=== PATIENT | female | born 1965 | race Caucasian/White ===

== ENCOUNTER 2021-10-17 12:30 | Outpatient (RCR) | payer BC, SELFPAY ==
--- NOTE | 2021-09-30 14:15 | OTOPEVAL ---
OCCUPATIONAL THERAPY EVALUATION REPORT AND DISCHARGE SUMMARY 09/30/21 Mehnaz is a 56 year-old, right handed female with PMH of DM and recent left AKA. OT evaluation completed this afternoon showing patient has functional UB strength, UE strengthening HEP from rehab, and is completing ADLs from w/c level with intermittent assist from her . Had patient simulate ADL tasks in the clinic today and had a lengthy discussion with the patient and her about having her help less as she does really well on her own. Also recommended that they install suction cup grab bars in the shower. No further skilled OT indicated at this time. Thank you for referring Mehnaz Luna to [facility] [place] Please review, sign, date and return this Discharge Summary REED. I agree with and certify that the following plan of care is medically necessary. Referring Physician Date Referring Provider: Kenia Juarez MD *OT Outpatient Evaluation Start: 09/30/21 13:27 Therapy Assessment Status Assessment Status Assessment Status Evaluation Outpatient Past Medical History Past Medical History Source of Past Medical History Patient Cardiovascular History Hx Myocardial Infarction Yes Gastrointestinal History Hx Cirrhosis Yes Musculoskeletal History Hx Rheumatoid Arthritis Yes Hx Other Musculoskeletal Disorders Yes: left AKA 07/28/21 Endocrine History Hx Diabetes Yes Integumentary History Hx Other Skin Disorders Yes: left foot ulcer Evaluation Information Problem Diagnosis left AKA Onset 07/28/21 Additional Evaluation Detail h/o left AKA 07/28/21 at [facility] from 08/26/21- . Subjective Information Patient lives at home with her Query Text:As Reported By Patient/ who helps her with Family shower transfers and intermittently helps with dressing. She got a new w/c and she can now do some cooking from w/c level. Prior Level of Function Activity Level (Last 3 Months) Hand Dominance Right Activity of Daily Living Ability Needs Some Help Indoor/Home Mobility Independent Community Mobility Independent Stairs Ability Not-Applicable Home Setting Home Type Mobile Home Environmental Barriers Jennyfer, Carpet,Jennyfer, Laminate,Ramp Living Situation With Spouse Support Available Local Family Support Mobility Assistive Devices (Used Last 3 Sliding Board,Wheelchair, Months) Manual Bathroom Environment Shower, Door Bathing Equipment Hand Held Shower,Tub Seat With Back Toileting Equipment None Pain Assessment Timing of Pain Assessment Jose Manuel
--- NOTE | 2021-09-30 16:44 | PTOPEVAL ---
Thank you for referring Mehnaz Luna to [facility] The patient is scheduled to be seen for therapy? 2 x/week for 8 weeks. Please review, sign, date and return this plan of care REED. I agree with and certify that the following plan of care is medically necessary. Referring Physician Date Referring Provider: Kenia Juarez Diagnosis left AKA Onset 07/28/21 Additional Evaluation Detail She had left AKA 07/28/21 and resection 08/05/21 at [place], the [facility] from 08/26/21- 09/11/21. She has a wc for mobility. Sutures are removed. 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 She borrowed a wc or Family scooted on her buttocks to get around the house until her amputation. She tried crutches 1x. She is able to lateral scoot transfer indep from wc to mat. She requires assistance with car transfers. Prior Level of Function Activity Level (Last 3 Months) Activity of Daily Living Ability Needs Some Help Indoor/Home Mobility Independent Community Mobility Independent Stairs Ability Not-Applicable Cooking No Cleaning No Laundry No Shopping No Driving No Home Setting Home Type Mobile Home Environmental Barriers Jennyfer, Carpet,Jennyfer, Laminate,Ramp Living Situation With Spouse Support Available Local Family Support Mobility Assistive Devices (Used Last 3 Crutches,Sliding Board, Months) Wheelchair, Manual Bathing Equipment Tub Seat With Back Pain Assessment Left Leg(s) Reported Pain Level 6 Pain Description Dull,Phantom,Stabbing Pain Frequency Continuous Lowest Pain Intensity 6 Greatest Pain Intensity 10 Lower Extremity Range of Motion General Lower Extremity Range of Motion Gross Lower Extremity Range of Motion right ankle DF: - 10 dg Comments left hip ext: -10 dg, passive - 8 dg Lower Extremity Muscle Strength Testing Hip Strength Right Hip Flexion Strength 3 Fair Hip Extension Strength 3- Fair - Hip Abduction Strength 3- Fair - Left Hip Flexion Strength 4 Good
--- NOTE | 2021-10-22 12:40 | PCPTNOTE ---
Patient called & cancelled scheduled appointment this date due to not being able to make it.
--- NOTE | 2021-10-24 12:50 | PCPTNOTE ---
Patient called & cancelled scheduled appointment this date due to not feeling well.
--- NOTE | 2021-10-30 12:41 | PCPTNOTE ---
Patient did not show up for scheduled appointment this date. Left message on her voicemail. No additional visits scheduled.
--- NOTE | 2021-11-11 11:59 | PCPTNOTE ---
Admitting Provider: Attending Provider: Dr. Kenia Juarez Patient:Mehnaz Luna Date of :1965 Physical Therapy Discharge Note Patient has not returned for any further treatments since 10/17/2021, therefore she will be discharged at this time. Patient?s initial visit was on 09/30/2021 12:30 and she had a total of 5 visits with 3 missed visits. The goals have been not met due to limited therapy visits. Thank you for referring this patient to [facility]. Please review, sign, date and return this discharge summary REED. I have been updated about the patient's current status and I agree with discharge from the above service at this time. Referring Physician Date
== END 2021-11-12 08:58 | disposition home or self-care (01) ==
LOC: ANHPT 12:30
DX: Z47.81 Encounter for orthopedic aftercare following surgical amputation (principal); Z89.612 Acquired absence of left leg above knee
CPT/HCPCS: 97110; 97112; 97116; 97140; 97162; 97165; 97530

== ENCOUNTER 2022-03-27 09:00 | Outpatient (RCR) | payer BC, SELFPAY ==
--- NOTE | 2022-03-13 15:16 | PTOPEVAL ---
PHYSICAL THERAPY EVALUATION AND PLAN OF CARE 03-13-22 Thank you for referring Mehnaz Luna to [facility]. She is scheduled to be seen for therapy? 2 x/week for 4 weeks. Please review, sign, date and return this plan of care REED. I agree with and certify that the following plan of care is medically necessary. 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- constant tingling Cardiovascular History Hx Myocardial Infarction Yes Respiratory History Hx Other Respiratory Disorders Yes: smoker Gastrointestinal History Hx Cirrhosis Yes Genitourinary History Hx Genitourinary Disorders No Significant History Musculoskeletal History Hx Rheumatoid Arthritis Yes Hx Other Musculoskeletal Disorders Yes: left AKA 07/28/21 due to septic arthritis; gout R; Endocrine History Hx Diabetes Yes: is not on any meds- do not have general dr; Integumentary History Hx Other Skin Disorders Yes: left foot ulcer Psychosocial History Hx Depression Yes: is not on any meds Evaluation Information Diagnosis s/p L AKA Onset 07-28-21 Subjective Information have had prosthesis for about Query Text:As Reported By Patient/ one month, from [facility]; have Family not put it on at home, only had on once at [facility] office; Home Setting Home Type House Environmental Barriers Ramp Living Situation With Spouse Mobility Assistive Devices (Used Last 3 Walker, Wheeled Months) Bathing Equipment Hand Held Shower,Tub Seat With Back Additional Prior Level of Function use wheel chair only for Comments mobility; have been staying in home; does all the home tasks and pushs her w/c up/down entry ramp into home; helps her into tub seat and showering; requires assist with dressing--pulling up her pants; pt reports do not do anything with the house chores; have not been standing or using the walker at home; is not doing any exercises at home Pain Assessment Pain Scale Pain Scale Used
--- NOTE | 2022-04-03 12:43 | PCPTNOTE ---
Patient called & cancelled scheduled appointment this date due to being exposed to Covid.
--- NOTE | 2022-04-09 11:45 | PCPTNOTE ---
pt called and canceled the reeval due to COVID exposure;
--- NOTE | 2022-04-09 13:28 | PCPTNOTE ---
Patient called & cancelled scheduled appointment this date due to having Covid.
--- NOTE | 2022-04-30 14:00 | PCPTNOTE ---
PHYSICAL THERAPY DISCHARGE 04-30-22 Attending Provider: Geovanny Garcia Patient:Mehnaz Luna Date of :1965 Mrs. Luna has received 3 PT sessions, from March 13 to ; she then called and canceled 2 appointments. Therefore, she will be discharged at this time. The goals were not addressed. Thank you for referring this patient to [facility]. Please review, sign, date and return this discharge summary REED. I have been updated about the patient's current status and I agree with discharge from the above service at this time. Referring Physician Date
== END 2022-04-30 15:59 | disposition home or self-care (01) ==
LOC: ANHPT 09:00
DX: Z47.1 Aftercare following joint replacement surgery (principal); Z89.612 Acquired absence of left leg above knee; Z74.09 Other reduced mobility; Z78.9 Other specified health status
CPT/HCPCS: 97110; 97116; 97162; 97530; 97761